=== PATIENT | female | born 1970 | race Caucasian/White ===

== ENCOUNTER → 2018-04-26 | Outpatient (CLI) | payer BC ==
[~2018-04-26] MED LIST: HYDACE5 PO; ONDA4 PO; OXYACE5T PO; PROM25 PO
== END | disposition home or self-care (01) ==
LOC: LAB 11:29 → LAB SHORT 11:29
PROVIDERS: Obstetrics & Gynecology
DX: Z12.4 Encounter for screening for malignant neoplasm of cervix (principal)
CPT/HCPCS: 87624; G0123

== ENCOUNTER 2018-06-09 07:42 | Day surgery (SDC) | payer BC ==
[~2018-06-09] VITALS: Ht 154.9 cm; Wt 91.0 kg
== END 2018-06-09 11:50 | disposition home or self-care (01) ==
LOC: ORSCSDS 07:42
PROVIDERS: Orthopaedic Surgery
PROC: 0LB60ZZ Excision of Left Lower Arm and Wrist Tendon, Open Approach (ICD-10-PCS; principal; 2018-06-09 09:00)
DX: M67.432 Ganglion, left wrist (principal); E66.9 Obesity, unspecified; Z68.37 Body mass index [BMI] 37.0-37.9, adult
CPT/HCPCS: 88304; J0690; J2250; J2405; J2765; J3010; J7120

== ENCOUNTER → 2019-06-07 | Outpatient (CLI) | payer BC | END | disposition home or self-care (01) | LOC: LAB SHORT 12:35 → PLD 12:35 | DX: N84.1 Polyp of cervix uteri (principal) | CPT/HCPCS: 84443; 88305 ==

== ENCOUNTER 2021-03-24 06:15 | Day surgery (SDC) | payer BC ==
[~2021-03-24] VITALS: Ht 154.9 cm; Wt 100.4 kg
--- NOTE | 2021-03-24 06:54 | NUR ---
03/24/21 0654 Yumiko Isidro, RN CHARTING FOR PREOP
== END 2021-03-24 08:18 | disposition home or self-care (01) ==
LOC: ORSCSDS 06:15
PROVIDERS: Orthopaedic Surgery
PROC: 01N50ZZ Release Median Nerve, Open Approach (ICD-10-PCS; principal; 2021-03-24 07:30)
DX: G56.01 Carpal tunnel syndrome, right upper limb (principal); E66.01 Morbid (severe) obesity due to excess calories; Z68.41 Body mass index [BMI] 40.0-44.9, adult
CPT/HCPCS: J1100; J2250; J2405; J2704; J3010; J7120

== ENCOUNTER 2023-01-02 10:31 | Emergency (ER) | payer OTHER ==
[~2023-01-02] VITALS: Ht 154.9 cm; Wt 89.8 kg
[2023-01-02] MEDS ORDERED: IBUP800 PO (12:18)
== END 2023-01-02 12:29 | disposition home or self-care (01) ==
LOC: ER 10:31
DX: M25.511 Pain in right shoulder (principal)
CPT/HCPCS: 73010; J1885

== ENCOUNTER 2024-10-03 06:04 | Day surgery (SDC) | payer OTHER ==
[~2024-10-03] VITALS: Ht 154.9 cm; Wt 99.0 kg
[~2024-10-03 06:04] MED LIST changes: +IBUP800 PO
[2024-10-03] MEDS ORDERED: CeFAZolin Sodium 2,000 MG VIAL ONE (06:29)
[2024-10-03] MEDS ORDERED: Lactated Ringer's 1,000 ML IV ONE ×3 (06:29→10:30)
[2024-10-03] MEDS ORDERED: NS 50 ML IV ONE (06:29)
[2024-10-03] MEDS ORDERED: HYDR10 PO (06:45)
[2024-10-03] MEDS ORDERED: EUTHYROX125 MCG PO (06:45)
[2024-10-03] MEDS ORDERED: HYDCHL50 PO (06:50)
[2024-10-03] MEDS ORDERED: propofoL 20 ML IV ONE (06:59)
[2024-10-03] MEDS ORDERED: FentaNYL Citrate 50 MCG/ML 2 ML Injection ONE (06:59)
[2024-10-03] MEDS ORDERED: Scopolamine Hydrobromide Patch ONE (07:02)
--- NOTE | 2024-10-03 07:09 | NUR ---
10/03/24 0709 Erlinda Falk RN PROVIDED TEACHING R/T TRANSDERMAL SCOPALAMINE PATCH. RN ENCOURAGED PT TO REMOVE PATCH AFTER 3 DAYS AND WASH HANDS AFTER TOUCHING.
[2024-10-03] MEDS ORDERED: Dexamethasone Sod Phos 10 MG/ML 1ML VIAL ONE (07:32)
[2024-10-03] MEDS ORDERED: Ondansetron HCl 2 MG / ML 2ML Vial ONE ×2 (07:32→08:43)
[2024-10-03] MEDS ORDERED: Ketorolac Tromethamine 30mg Vial ONE (07:34)
[2024-10-03] MEDS ORDERED: Lidocaine 2%-Epineph 1:100000 20 ML MDV INJ ONE (07:55)
[2024-10-03 08:34] VITALS: BP 128/80
--- NOTE | 2024-10-03 08:55 | NUR ---
10/03/24 0855 Prisca Carson IV ZOFRAN GIVEN FOR NAUSEA
[2024-10-03] MEDS ORDERED: Metoclopramide HCl 5MG / ML 2ML Vial ONE (09:09)
[2024-10-03] MEDS ORDERED: Droperidol 5 mg/2 ml Vial ONE (09:57)
== END 2024-10-03 10:43 | disposition home or self-care (01) ==
LOC: ORSCSDS 06:04
PROVIDERS: Orthopaedic Surgery
PROC: 0SBC4ZZ Excision of Right Knee Joint, Percutaneous Endoscopic Approach (ICD-10-PCS; principal; 2024-10-03 07:30)
DX: S83.241A Other tear of medial meniscus, current injury, right knee, initial encounter (principal); S83.281A Other tear of lateral meniscus, current injury, right knee, initial encounter; I10 Essential (primary) hypertension; E03.9 Hypothyroidism, unspecified; Z79.899 Other long term (current) drug therapy
CPT/HCPCS: A9270; J0690; J1100; J1790; J1885; J2405; J2704; J2765; J3010; J7120